=== PATIENT | female | born 1985 | race Caucasian/White ===

== ENCOUNTER 2021-02-25 19:41 | Emergency (ER) | payer MEDICAID ==
[~2021-02-25] VITALS: Ht 172.7 cm; Wt 129.3 kg
[~2021-02-25 19:41] MED LIST: ACHYD1T PO; DCS100C PO; FLUC200T45 PO; HYDR1TAB PO
[2021-02-25 20:16] LABS: BASOPHILS % (AUTO) 0 % (0-10); EOSINOPHILS # (AUTO) 0.4 10^3/uL (0.0-0.3); EOSINOPHILS % (AUTO) 4 % (0-10); HEMATOCRIT 39 % (35-52); HEMOGLOBIN 13.1 g/dL (11.5-16.0); LYMPHOCYTES # (AUTO) 2.9 10^3/uL (1.0-4.0); LYMPHOCYTES % (AUTO) 26 % (12-44); MEAN CORPUSCULAR HEMOGLOBIN 30 pg (25-34); MEAN CORPUSCULAR HGB CONC 34 g/dL (32-36); MEAN CORPUSCULAR VOLUME 89 fL (80-99); MEAN PLATELET VOLUME 8.7 fL (9.0-12.2); MONOCYTES # (AUTO) 0.8 10^3/uL (0.0-1.0); MONOCYTES % (AUTO) 7 % (0-12); NEUTROPHILS % (AUTO) 63 % (42-75); PLATELET COUNT 457 10^3/uL (130-400); WHITE BLOOD COUNT 11.2 10^3/uL (4.3-11.0)
--- NOTE | 2021-02-25 20:52 | ED General ---
General Chief Complaint: Lower Extremity Stated Complaint: L LEG PAIN/REDNESS Nursing Triage Note: TO ED VIA POV AND AMBULATORY TO ROOM 6 FROM [facility]. PT C/O BILAT LEG/FEET SWELLING WITH LEFT > RIGHT, REDNESS AND PAIN TO LEFT LOWER EXTREMITY. DENIES INJURY. Nursing Sepsis Screen: No Definite Risk Source of Information: Patient Exam Limitations: No Limitations (TASHIA CARROLL MED STUDENT) History of Present Illness Date Seen by Provider: Feb 25, 2021 Time Seen by Provider: 20:00 Initial Comments Pt is a 35yo female who presents to the ED complaining of LLE swelling and pain. She states that she started having pain, redness and swelling in her left anterior calf last night. When she woke up this morning the redness had gotten bigger and the swelling had moved to her foot. She tried putting biofreeze on the area last night and it helped only a little. Movement makes pain worse. She reports current 7/10 aching and throbbing pain in the area. Has never had anything like this before. She denies fever, chills, SOB, chest pain, n/v. She admits to meth use earlier today and also vapes nicotine products. Timing/Duration: 1-2 Days Severity: Mild Modifying Factors: improves with Movement Associated Systoms: Rash (TASHIA CARROLL,EDUIN STUDENT) Initial Comments Patient denies any fever. Her erythema is turning into a petechial rash on the dorsal aspect of the left lower leg. (SLICK WINN MD) Allergies and Home Medications Allergies Coded Allergies: Nsaids (Unverified Allergy, Mild, 08/23/09) NKANo Known Allergies (Verified Allergy, Unknown, 01/30/07) Home Medications Cefdinir 300 Mg Capsule, 300 MG PO BID Prescribed by: SLICK MELENDEZ on 02/25/212105 Docusate Sodium 100 Mg Capsule, 100 MG PO BID, (Reported) Fluconazole 200 Mg Tablet, 1 EACH PO EVERY OTHER DAY, (Reported) Hydrocodone Bit/Acetaminophen 1 Tab Tablet, 1-2 TAB PO Q3 H PRN, (Reported) Patient Home Medication List Home Medication List Reviewed: Yes (SLICK WINN MD) Review of Systems Review of Systems Constitutional: No chills, No fever; malaise EENTM: no symptoms reported Respiratory: No short of breath Cardiovascular: No chest pain; edema (LLE); No palpitations Gastrointestinal: No abdominal pain, No constipation, No diarrhea, No nausea, No vomiting Genitourinary: no symptoms reported Skin: change in color (LLE), rash (LLE) Psychiatric/Neurological: No Symptoms Reported Hematologic/Lymphatic: No Symptoms Reported Immunological/Allergic: no symptoms reported (TASHIA CARROLL MED STUDENT) Past Udzqfnz-Tqsjne-Ykztim Hx Past Med/Social Hx: Reviewed Nursing Past Med/Soc Hx (SLICK WINN MD) Patient Social History Alcohol Use: Rarely Uses Drug of Choice: METH Smoking Status: Current Everyday Smoker Type Used: Electronic/Vapor (nicotine) Recent Infectious Disease Expo: No (TASHIA CARROLL MED STUDENT) Past Medical History Surgeries: Yes (c/s) Section, Tonsillectomy, Tubal Ligation Respiratory: No Cardiac: No Neurological: No Reproductive Disorders: No Genitourinary: No Gastrointestinal: No Musculoskeletal: Yes Fibromyalgia Endocrine: No HEENT: No Cancer: No Psychosocial: No Integumentary: No Blood Disorders: No (TASHIA CARROLL MED STUDENT) Physical Exam Vital Signs Vital Signs - First Documented 02/25/21 02/25/21 19:49 22:09 Temp 36.1 Pulse 90 Resp 18 B/P (MAP) 102/67 (79) Pulse Ox 98 O2 Delivery Room Air (SLICK WINN MD) Vital Signs Capillary Refill : Less Than 3 Seconds (TASHIA CARROLL MED STUDENT) Height, Weight, BMI Height: '" Weight: lbs. oz. kg; 43.00 BMI Method: General Appearance: No Apparent Distress, WD/WN HEENT: PERRL/EOMI, Moist Mucous Membranes Neck: Full Range of Motion, Non Tender Respiratory: Lungs Clear, No Accessory Muscle Use, No Respiratory Distress Cardiovascular: Regular Rate, Rhythm, No Murmur Gastrointestinal: Normal Bowel Sounds, Non Tender, Soft Extremity: Normal Capillary Refill, Calf Tenderness (left anterior calf with palpation), Pedal Edema (left foot), Swelling (LLE) Neurologic/Psychiatric: Alert, Oriented x3, No Motor/Sensory Deficits, Normal Mood/Affect Skin: Warm/Dry, Erythema (left anterior calf has area of petechiae and surround erythema extending about 2/3 up the gomez), Petechia (CARROLL,TASHIA,MED STUDENT) Progress/Results/Core Measures Suspected Sepsis Recent Fever Within 48 Hours: No Infection Criteria Present: Suspected New Infection New/Unexplained Altered Menta: No Sepsis Screen: No Definite Risk SIRS Temperature: Pulse: 90 Respiratory Rate: 18 Laboratory Tests 02/25/21 20:00: White Blood Count 11.2H Blood Pressure 102 /67 Mean: 79 Laboratory Tests 02/25/21 20:00: Platelet Count 457H (TASHIA CARROLLMED STUDENT) Results/Orders Lab Results Laboratory Tests Test 02/25/21 20:00 Range/Units White Blood Count 11.2 H 4.3-11.0 10^3/uL Red Blood Count 4.38 3.80-5.11 10^6/uL Hemoglobin 13.1 11.5-16.0 g/dL Hematocrit 39 35-52 % Mean Corpuscular Volume 89 80-99 fL Mean Corpuscular Hemoglobin 30 25-34 pg Mean Corpuscular Hemoglobin Concent 34 32-36 g/dL Red Cell Distribution Width 12.5 10.0-14.5 % Platelet Count 457 H 130-400 10^3/uL Mean Platelet Volume 8.7 L 9.0-12.2 fL Immature Granulocyte % (Auto) 0 % Neutrophils (%) (Auto) 63 42-75 % Lymphocytes (%) (Auto) 26 12-44 % Monocytes (%) (Auto) 7 0-12 % Eosinophils (%) (Auto) 4 0-10 % Basophils (%) (Auto) 0 0-10 % Neutrophils # (Auto) 7.0 1.8-7.8 10^3/uL Lymphocytes # (Auto) 2.9 1.0-4.0 10^3/uL Monocytes # (Auto) 0.8 0.0-1.0 10^3/uL Eosinophils # (Auto) 0.4 H 0.0-0.3 10^3/uL Basophils # (Auto) 0.0 0.0-0.1 10^3/uL Immature Granulocyte # (Auto) 0.1 0.0-0.1 10^3/uL D-Dimer 0.02 0.00-0.49 UG/ML C-Reactive Protein High Sensitivity 5.51 H 0.00-0.50 MG/DL Serum Test, Qualitative NEGATIVE NEGATIVE (SLICK WINN MD) My Orders Orders - SLICK WINN MD Cbc With Automated Diff (02/25/21 19:47) Hs C Reactive Protein (02/25/21 19:47) Fibrin Degradation Products (02/25/21 19:47) Hcg,Qualitative Serum (02/25/21 19:47) Ceftriaxone For Iv Use (Rocephin For I (02/25/21 21:00) Ed Iv/Invasive Line Start (02/25/21 21:02) Ns Iv 1000 Ml (Sodium Chloride 0.9%) (02/25/21 21:15) (SLICK WINN MD) Medications Given in ED Current Medications Medications Dose Ordered Sig/[place] Route Start Time Stop Time Status Last Admin Dose Admin Ceftriaxone Sodium 1000 mg/ Sterile Water 10 ml @ 200 mls/hr ONCE ONCE IV 02/25/21 21:00 02/25/21 21:02 DC 02/25/21 21:26 200 MLS/HR (SLICK WINN MD) Vital Signs/I&O 02/25/21 02/25/21 19:49 22:09 Temp 36.1 36.1 Pulse 90 84 Resp 18 16 B/P (MAP) 102/67 (79) 116/54 (79) Pulse Ox 98 O2 Delivery Room Air Room Air (SLICK WINN MD) Vital Signs/I&O Capillary Refill : Less Than 3 Seconds (TASHIA CARROLL,MED STUDENT) Blood Pressure Mean: 79 Progress Note : Time: 21:07 Progress Note Patient's most recent blood pressure readings are decreased with systolic readings in the 90s. She states she took her clonidine and tizanidine too close together before coming to the ED because she was nervous. Denies any headaches or lightheadedness but states she is just tired. Will give 1L NS and recheck BP. (TASHIA CARROLL,MED STUDENT) Progress Note : Time: 21:30 Progress Note D-dimer was negative. CRP was mildly elevated. Rocephin is being administered for initial treatment of cellulitis. We will prescribe Omnicef for further treatment. We did inquire about referring for substance abuse resources. Patient is already engaged in a treatment process through [facility] and plans to be admitted for an inpatient treatment program later this month. (SLICK WINN MD) Departure Impression Primary Impression: Cellulitis of left leg Disposition: 01 HOME, SELF-CARE Condition: Improved Departure-Patient Inst. Decision time for Depature: 21:04 (SLICK WINN MD) Referrals: HA HERNANDEZ MD (PCP/Family) Primary Care Physician Patient Instructions: Cellulitis (Skin Infection), Adult (DC) Add. Discharge Instructions: Complete your antibiotics as prescribed. Elevate your foot to the level of your heart is much as possible. Monitor for worsening condition including spreading of the redness, fevers, chills, etc. Have a low threshold for returning to care if your symptoms are worsening. Call with questions or concerns. Drink plenty of clear liquids to stay well-hydrated. Please use your clonidine and tizanidine with extreme caution since your blood pressure is borderline tonight. Follow-up with your primary care provider within the next week for repeat evaluation. All discharge instructions reviewed with patient and/or family. Voiced understanding. Scripts Cefdinir (Cefdinir) 300 Mg Capsule 300 MG PO BID, #20 CAP Prov: SLICK WINN MD 02/25/21 Medical Student Attestation and Attending Note: I have personally interviewed and examined this patient along with Tashia Carroll, MS 4. I have reviewed student documentation including history, physical, and assessments. I agree with the documentation except where otherwise noted. Exam: General: Alert, oriented, no acute distress, well developed HEENT: Normocephalic and atraumatic Heart: Regular rate and rhythm without murmur Lungs: Clear to auscultation bilaterally with normal effort Neuropsych: Alert, oriented, no focal deficits Extremities: Left lower leg and foot edema with anterior erythema, warmth, and tenderness with petechial rash over the gomez (SLICK WINN MD) Copy Copies To 1: HA HERNANDEZ MD, HEATHER,MED STUDENT Feb 25, 2021 20:52 SLICK IWNN MD Feb 25, 2021 21:06
[2021-02-25] MEDS ORDERED: cefTRIAXone FOR IV USE 1,000 MG in WATER (STERILE) FOR INJECTION 10 ML IV ONE (21:00)
[2021-02-25] MEDS ORDERED: CEFD300C3 PO (21:06)
[2021-02-25] MEDS ORDERED: NS IV 1000 ML 1,000 ML IV SCH (21:15)
[2021-02-25 22:09] VITALS: BP 116/54
== END 2021-02-25 22:09 | disposition home or self-care (01) ==
LOC: EDUNIT# 19:41 → ER 19:43
DX: L03.116 Cellulitis of left lower limb (principal); M79.7 Fibromyalgia; F17.290 Nicotine dependence, other tobacco product, uncomplicated; Z88.6 Allergy status to analgesic agent
CPT/HCPCS: 36415; 84703; 85025; 85379; 86141

== ENCOUNTER 2021-11-16 14:58 | Emergency (ER) | payer MEDICAID ==
[~2021-11-16] VITALS: Ht 172 cm; Wt 95.0 kg
[~2021-11-16 14:58] MED LIST changes: +CEFD300C3 PO
--- NOTE | 2021-11-16 15:24 | ED General ---
General Chief Complaint: COVID19 Suspect/Confirmed Stated Complaint: COVID EXPOSURE,LOSS OF TASTE,COLEMAN,FEVER Source of Information: Patient Exam Limitations: No Limitations History of Present Illness Date Seen by Provider: Nov 16, 2021 Time Seen by Provider: 15:40 Initial Comments COVID exposure from boyfriend, symptoms for past 3 days. Loss of taste, COLEMAN, fever. Did not receive COVID vaccine. Allergies and Home Medications Allergies Coded Allergies: Nsaids (Unverified Allergy, Mild, 08/23/09) NKANo Known Allergies (Verified Allergy, Unknown, 01/30/07) Patient Home Medication List Home Medication List Reviewed: Yes Cefdinir (Cefdinir) 300 Mg Capsule, 300 MG PO BID Prescribed by: SLICK MELENDEZ on 02/25/212105 Docusate Sodium (Colace) 100 Mg Capsule, 100 MG PO BID, (Reported) Entered as Reported by: SUDHIR DEMARCO on 11/22/11 08 Erythromycin Base (Erythromycin Opthalmic Ointment) 1 Gm Oint...g., 0 OP Q12H Prescribed by: VIRGINIA MOREAU on 11/16/21 1633 Fluconazole (Diflucan 200 Mg Tab) 200 Mg Tablet, 1 EACH PO EVERY OTHER DAY, (Reported) Entered as Reported by: SUDHIR DEMARCO on 11/22/11 0808 Hydrocodone Bit/Acetaminophen (Lorcet Plus 10/325 Mg) 1 Tab Tablet, 1-2 TAB PO Q3 H PRN, (Reported) Entered as Reported by: SUDHIR DEMARCO on 11/22/11 0808 Review of Systems Review of Systems Constitutional: chills, fever, malaise EENTM: no symptoms reported Respiratory: cough Cardiovascular: no symptoms reported Gastrointestinal: loss of appetite Genitourinary: no symptoms reported Musculoskeletal: no symptoms reported Skin: no symptoms reported Psychiatric/Neurological: Headache Hematologic/Lymphatic: No Symptoms Reported Immunological/Allergic: no symptoms reported Past Ckldjzm-Gdimdt-Tpvooj Hx Past Medical History Surgeries: Yes (c/s) Section, Tonsillectomy, Tubal Ligation Respiratory: No Cardiac: No Neurological: No Reproductive Disorders: No Genitourinary: No Gastrointestinal: No Musculoskeletal: Yes Fibromyalgia Endocrine: No HEENT: No Cancer: No Psychosocial: No Integumentary: No Blood Disorders: No Physical Exam Vital Signs Vital Signs - First Documented 11/16/21 15:23 Temp 36.6 Pulse 104 Resp 20 B/P (MAP) 148/91 (110) Pulse Ox 99 Capillary Refill : Height, Weight, BMI Height: '" Weight: lbs. oz. kg; 43.00 BMI Method: General Appearance: No Apparent Distress, WD/WN Eyes: Right Eye Normal Inspection; Left Eye Other (injected ); Bilateral Eye PERRL, Bilateral Eye EOMI HEENT: PERRL/EOMI, Normal ENT Inspection, Pharynx Normal Neck: Full Range of Motion, Normal Inspection, Supple Respiratory: Lungs Clear, Normal Breath Sounds, No Accessory Muscle Use Cardiovascular: Regular Rate, Rhythm, No Murmur, Normal Peripheral Pulses Gastrointestinal: Normal Bowel Sounds, Non Tender, Soft Extremity: Normal Capillary Refill, Normal Inspection, Normal Range of Motion Neurologic/Psychiatric: Alert, Oriented x3, No Motor/Sensory Deficits, Normal Mood/Affect Progress/Results/Core Measures Suspected Sepsis SIRS Temperature: Pulse: Respiratory Rate: Blood Pressure / Mean: Results/Orders Lab Results Laboratory Tests Test 11/16/21 15:17 Range/Units Influenza Type A (RT-PCR) Not Detected Not Detecte Influenza Type B (RT-PCR) Not Detected Not Detecte SARS-CoV-2 RNA (RT-PCR) Detected H Not Detecte My Orders Orders - VIRGINIA MOREAU APRN Covid 19 Inhouse Test (11/16/21 15:03) Influenza A And B By Pcr (11/16/21 15:03) Vital Signs/I&O 11/16/21 11/16/21 15:23 16:27 Temp 36.6 36.6 Pulse 104 104 Resp 20 20 B/P (MAP) 148/91 (110) 148/91 Pulse Ox 99 99 Capillary Refill : Departure Impression Primary Impression: COVID-19 Additional Impression: [place] eye disease of left eye Disposition: 01 HOME, SELF-CARE Condition: Stable Departure-Patient Inst. Decision time for Depature: 16:16 Referrals: HA HERNANDEZ MD (PCP/Family) Primary Care Physician Patient Instructions: COVID-19 Overview Add. Discharge Instructions: Plan: 1. What to do stay home for 10 days from your symptom onset. 2. [facility] will call you with date/time for REGEN COV infusion. 3. May take Tylenol or Ibuprofen as needed for pain/fever. 4. Return for any new, concerning, or worsening symptoms. All discharge instructions reviewed with patient and/or family. Voiced understanding. Scripts Erythromycin Base (Erythromycin Opthalmic Ointment) 1 Gm Oint...g. 0 OP Q12H for 7 Days, #3.5 GM 0 Refills 1/2 inch Prov: VIRGINIA MOREAU CADD INSTRUCTOR 11/16/21 VIRGINIA MOREAU APRN Nov 16, 2021 15:24
[2021-11-16 16:27] VITALS: BP 148/91
[2021-11-16] MEDS ORDERED: ERYT1OIN6 OP (16:33)
== END 2021-11-16 16:23 | disposition home or self-care (01) ==
LOC: EDUNIT# 14:58 → ER 14:59
DX: U07.1 COVID-19 (principal); H10.89 Other conjunctivitis
CPT/HCPCS: 87636; 99283

== ENCOUNTER 2022-03-05 17:31 | Emergency (ER) | payer MEDICAID ==
[~2022-03-05] VITALS: Ht 172 cm; Wt 100.0 kg
[~2022-03-05 17:31] MED LIST changes: +ERYT1OIN6 OP
[2022-03-05] MEDS ORDERED: NS IV 1000 ML 1,000 ML IV SCH (17:45)
--- NOTE | 2022-03-05 17:54 | ED Psychosocial ---
General Stated Complaint: SUICIDE ATTEMPT Source: patient Exam Limitations: no limitations History of Present Illness Date Seen by Provider: Mar 05, 2022 Time Seen by Provider: 17:35 Initial Comments The patient presents to the ER by EMS from home with chief complaint that her children noticed she was very somnolent. She admits about 16 30-16 45 she took 2 of her tramadol 50 mg, 6 of her Zanaflex 4 mg, 2 of her trazodone 100 mg each and 2 of her Xanax half milligrams each. She says recently she has been 51 days clean from methamphetamines and doing well with a new job. She was fired for no fault of her own and was afraid that she might relapse as well as was having despair. She is not having any family issues right now. She is not suicidal and adamant that she does not want to kill herself she just wanted to go numb from the feelings of self-deprecation and despair. She is not having any nausea. EMS made 1 attempt at an IV unsuccessfully. She is otherwise oriented and has a history of depression on lithium 600 mg at night and Latuda 80 mg. She does have a history of suicide attempt January 17 about 1-1/2 months ago and spent some time in the [facility] unit for about a week. She felt that that was very helpful. She says she does not feel the same way now as she did then and does not think she needs inpatient however she would be willing to go if it was recommended and she could find placement for her children. She did not follow- up with a counselor but she does have a psychiatrist as well as Dr. Hernanedz for primary care. Allergies and Home Medications Allergies Coded Allergies: Nsaids (Unverified Allergy, Mild, 08/23/09) NKANo Known Allergies (Verified Allergy, Unknown, 01/30/07) Patient Home Medication List Home Medication List Reviewed: Yes Cefdinir (Cefdinir) 300 Mg Capsule, 300 MG PO BID Prescribed by: SLICK MELENDEZ on 02/25/212105 Docusate Sodium (Colace) 100 Mg Capsule, 100 MG PO BID, (Reported) Entered as Reported by: SUDHIR DEMARCO on 11/22/11 0808 Erythromycin Base (Erythromycin Opthalmic Ointment) 1 Gm Oint...g., 0 OP Q12H Prescribed by: VIRGINIA MOREAU on 11/16/21 1633 Fluconazole (Diflucan 200 Mg Tab) 200 Mg Tablet, 1 EACH PO EVERY OTHER DAY, (Reported) Entered as Reported by: SUDHIR DEMARCO on 11/22/11 08 Hydrocodone Bit/Acetaminophen (Lorcet Plus 10/325 Mg) 1 Tab Tablet, 1-2 TAB PO Q3 H PRN, (Reported) Entered as Reported by: SUDHIR DEMARCO on 11/22/11 0808 Review of Systems Constitutional: No chills, No diaphoresis EENTM: No ear discharge, No ear pain Respiratory: No cough, No short of breath Cardiovascular: No chest pain, No edema, No palpitations Gastrointestinal: No constipation, No diarrhea Genitourinary: No discharge, No dysuria : No Musculoskeletal: No back pain, No joint pain All Other Systems Reviewed Negative Unless Noted: Yes Past Ijzmxtz-Zvyfkp-Lqlgns Hx Patient Social History Tobacco Use?: No Use of E-Cig and/or Vaping dev: No Substance use?: Yes Substance type: Methamphetamine Past Medical History Surgeries: Yes (c/s) Section, Tonsillectomy, Tubal Ligation Respiratory: No Cardiac: No Neurological: No Reproductive Disorders: No Genitourinary: No Gastrointestinal: No Musculoskeletal: Yes Fibromyalgia Endocrine: No HEENT: No Cancer: No Psychosocial: No Integumentary: No Blood Disorders: No Physical Exam Capillary Refill : Height, Weight, BMI Height: '" Weight: lbs. oz. 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 States she was just feeling very down because she lost her job and was worried about relapse and wanted to go numb) Appearance/Memory: appropriate appearance, neat, no memory impairment Behavior/Eye Contact: cooperative, good eye contact, decreased rate of speech Thoughts/Hallucinations: normal thought pattern, no apparent hallucination Skin: normal color, warm/dry Progress/Results/Core Measures Results/Orders Lab Results Laboratory Tests Test 03/05/22 18:00 Range/Units White Blood Count 8.6 4.3-11.0 10^3/uL Red Blood Count 4.04 3.80-5.11 10^6/uL Hemoglobin 12.4 11.5-16.0 g/dL Hematocrit 37 35-52 % Mean Corpuscular Volume 92 80-99 fL Mean Corpuscular Hemoglobin 31 25-34 pg Mean Corpuscular Hemoglobin Concent 33 32-36 g/dL Red Cell Distribution Width 13.0 10.0-14.5 % Platelet Count 342 130-400 10^3/uL Mean Platelet Volume 9.6 9.0-12.2 fL Immature Granulocyte % (Auto) 1 % Neutrophils (%) (Auto) 51 42-75 % Lymphocytes (%) (Auto) 36 12-44 % Monocytes (%) (Auto) 7 0-12 % Eosinophils (%) (Auto) 5 0-10 % Basophils (%) (Auto) 0 0-10 % Neutrophils # (Auto) 4.4 1.8-7.8 10^3/uL Lymphocytes # (Auto) 3.1 1.0-4.0 10^3/uL Monocytes # (Auto) 0.6 0.0-1.0 10^3/uL Eosinophils # (Auto) 0.4 H 0.0-0.3 10^3/uL Basophils # (Auto) 0.0 0.0-0.1 10^3/uL Immature Granulocyte # (Auto) 0.0 0.0-0.1 10^3/uL Sodium Level 138 135-145 MMOL/L Potassium Level 4.1 3.6-5.0 MMOL/L Chloride Level 107 98-107 MMOL/L Carbon Dioxide Level 19 L 21-32 MMOL/L Anion Gap 12 5-14 MMOL/L Blood Urea Nitrogen 8 7-18 MG/DL Creatinine 0.96 0.60-1.30 MG/DL Estimat Glomerular Filtration Rate 78 BUN/Creatinine Ratio 8 Glucose Level 126 H 70-105 MG/DL Calcium Level 9.2 8.5-10.1 MG/DL Corrected Calcium 9.1 8.5-10.1 MG/DL Total Bilirubin 0.2 0.1-1.0 MG/DL Aspartate Amino Transf (AST/SGOT) 24 5-34 U/L Alanine Aminotransferase (ALT/SGPT) 18 0-55 U/L Alkaline Phosphatase 55 40-136 U/L Total Protein 6.9 6.4-8.2 GM/DL Albumin 4.1 3.2-4.5 GM/DL Salicylates Level < 5.0 L 5.0-20.0 MG/DL Acetaminophen Level < 10 L 10-30 UG/ML Serum Alcohol < 10 <10 MG/DL My Orders Orders - MIRNA AGUILA Ua Culture If Indicated (03/05/22 17:45) Cbc With Automated Diff (03/05/22 17:45) Comprehensive Metabolic Panel (03/05/22 17:45) Alcohol (03/05/22 17:45) Drug Screen Stat (Urine) (03/05/22:45) Acetaminophen (03/05/22 17:45) Salicylate (03/05/22 17:45) Ekg Tracing (03/05/22 17:45) Ed Iv/Invasive Line Start (03/05/22 17:45) Bh Status Checks/Observation Q15M (03/05/22 17:45) Ed Iv/Invasive Line Start (03/05/22 17:45) Ns Iv 1000 Ml (Sodium Chloride 0.9%) (03/05/22 17:45) Hcg,Qualitative Serum (03/05/22:45) Progress Progress Note #1: Time: 18:06 Progress Note Discussed the case with poison control and they recommend that tizanidine can cause bradycardia and hypotension, tramadol should have a couple of EKGs 4 hours apart looking for QRS prolongation so should Xanax and if we can get local lithium levels we should do a couple at least 4 hours apart. Because she is using the tramadol he does not recommend flumazenil for respiratory sedation as it would increase the risk of seizures. He would recommend just intubation in that case. We put the patient on end-tidal CO2 and will seek a overnight observation because she is already quite somnolent just an hour after taking her medications. Progress Note #2: Time: 18:32 Progress Note Patient came out and has spoke to her mother and states that they are going to take her children away and she wants to leave right now. She is alert walking around without stumbling and oriented x4. She is not slurring her speech. She is adamant that she has no suicidal thoughts and that this is not much more than she takes on a regular basis. She is still adamant that she is not suicidal nor homicidal and just wants to intervene for her children. We explained to her that we cannot make a good medical commitment that she is cleared of being unsafe however she has been good on her end-tidal CO2 since she has been here. We have discussed the recommendations made by poison control and the patient states that she is still adamant that she wants to leave AGAINST MEDICAL ADVICE and has signed a form to this effect. We have explicitly discussed the risks, benefits and alternatives to her course of action and recommend that she return if her symptoms worsen or follow-up with her doctor. Initial ECG Impression Date: Mar 05, 2022 Initial ECG Impression Time: 17:39 Initial ECG Rate: 67 Initial ECG Rhythm: Normal Sinus Initial ECG Intervals: Normal Initial ECG Impression: Normal Comment Normal sinus rhythm with out QTC prolongation or ST elevation/depression Departure Impression Primary Impression: Intentional overdose Qualified Codes: T50.902A - Poisoning by unspecified drugs, medicaments and biological substances, intentional self-harm, initial encounter Additional Impression: Somnolence Disposition: 07 AGAINST MEDICAL ADVICE Condition: Against Medical Advice Departure-Patient Inst. Decision time for Depature: 18:34 Referrals: HA HERNANDEZ MD (PCP/Family) Primary Care Physician Patient Instructions: Dealing with Drowsiness from the Drugs You Take Add. Discharge Instructions: Please return to the ER if you become drowsy or call 911. Follow-up with your primary care doctor, NA, or other support groups such as your psychiatrist this week to help with your low feelings. MIRNA AGUILA Mar 05, 2022 17:54
[2022-03-05 18:08] LABS: BASOPHILS % (AUTO) 0 % (0-10); EOSINOPHILS # (AUTO) 0.4 10^3/uL (0.0-0.3); EOSINOPHILS % (AUTO) 5 % (0-10); HEMATOCRIT 37 % (35-52); HEMOGLOBIN 12.4 g/dL (11.5-16.0); LYMPHOCYTES # (AUTO) 3.1 10^3/uL (1.0-4.0); LYMPHOCYTES % (AUTO) 36 % (12-44); MEAN CORPUSCULAR HEMOGLOBIN 31 pg (25-34); MEAN CORPUSCULAR HGB CONC 33 g/dL (32-36); MEAN CORPUSCULAR VOLUME 92 fL (80-99); MEAN PLATELET VOLUME 9.6 fL (9.0-12.2); MONOCYTES # (AUTO) 0.6 10^3/uL (0.0-1.0); MONOCYTES % (AUTO) 7 % (0-12); NEUTROPHILS # (AUTO) 4.4 10^3/uL (1.8-7.8); NEUTROPHILS % (AUTO) 51 % (42-75); PLATELET COUNT 342 10^3/uL (130-400); WHITE BLOOD COUNT 8.6 10^3/uL (4.3-11.0)
[2022-03-05 18:17] LABS: CHLORIDE 107 MMOL/L (98-107); POTASSIUM 4.1 MMOL/L (3.6-5.0); SODIUM 138 MMOL/L (135-145)
[2022-03-05 18:18] LABS: ALBUMIN 4.1 GM/DL (3.2-4.5)
[2022-03-05 18:19] LABS: CALCIUM 9.2 MG/DL (8.5-10.1)
[2022-03-05 18:20] LABS: GLUCOSE 126 MG/DL (70-105); TOTAL PROTEIN 6.9 GM/DL (6.4-8.2)
[2022-03-05 18:21] LABS: CARBON DIOXIDE 19 MMOL/L (21-32)
[2022-03-05 18:22] LABS: BILIRUBIN,TOTAL 0.2 MG/DL (0.1-1.0)
[2022-03-05 18:24] LABS: ALKALINE PHOSPHATASE 55 U/L (40-136); CREATININE SERUM 0.96 MG/DL (0.60-1.30); GFR ESTIMATED 78
[2022-03-05 18:25] LABS: BUN/CREATININE RATIO 8
[2022-03-05 18:27] LABS: ALANINE AMINOTRANSFERASE 18 U/L (0-55); SALICYLATE < 5.0 MG/DL (5.0-20.0)
[2022-03-05 18:28] LABS: ACETAMINOPHEN < 10 UG/ML (10-30)
[2022-03-05 18:33] VITALS: BP 86/53
== END 2022-03-05 18:33 | disposition left against medical advice (07) ==
LOC: EDUNIT# 17:31 → ER 17:32
DX: T42.8X2A Poisoning by antiparkinsonism drugs and other central muscle-tone depressants, intentional self-harm, initial encounter (principal); R40.0 Somnolence; X83.8XXA Intentional self-harm by other specified means, initial encounter
CPT/HCPCS: 80053; 84703; 85025; 93005; 99284; G0480 ×3; 36415; 80320; 80329

== ENCOUNTER → 2022-03-10 | Outpatient (CLI) | payer MEDICAID ==
--- NOTE | 2022-03-10 13:15 | Diagnostic Imaging Report ---
INDICATION: Bilateral breast pain, bilateral nipple discharge. No prior studies are available for comparison. 2-D and 3-D bilateral diagnostic mammography was performed with CAD. Scattered fibroglandular densities are identified bilaterally. No mass or malignant-appearing microcalcifications are seen. Axillae are unremarkable. IMPRESSION: No mammographic features suspicious for malignancy are identified. Even so, sonographic interrogation of the areas of pain in both breasts as well as retroareolar regions of both breasts is recommended and will be performed today. ACR BI-RADS Category 0: Incomplete. (Needs additional imaging evaluation). Result letter will be mailed to the patient. Note: At least 10% of breast cancer is not imaged by mammography. BI-RADS Category 0 Dictated by: Dictated on workstation # [id number]
--- NOTE | 2022-03-11 07:28 | Diagnostic Imaging Report ---
INDICATION: Bilateral breast pain and bilateral nipple discharge. Sonographic interrogation of the areas of pain both breasts was performed which corresponds to the periareolar regions. The retroareolar regions were also evaluated. No sonographic abnormalities identified in either breast. No solid or cystic mass is detected. Retroareolar regions were unremarkable. IMPRESSION: BI-RADS Category 1 No sonographic abnormalities identified in either breast. ACR BI-RADS Category 1: Negative. Dictated by: Dictated on workstation # [id number]
== END ==
LOC: RAD 12:45
PROVIDERS: ATTEND Surgery
DX: N64.52 Nipple discharge (principal)
CPT/HCPCS: 76642; 77066; G0279; 77062